=== PATIENT | male | born 1970 | race Caucasian/White ===

== ENCOUNTER 2022-01-15 19:52 | Emergency (ER) | payer OTHER ==
[~2022-01-15] VITALS: Ht 175.3 cm; Wt 117.9 kg
[2022-01-15] MEDS ORDERED: BENADRYL ALLERG25 MG PO (21:40)
[2022-01-15] MEDS ORDERED: ATIVAN0.5 MG PO (21:40)
[2022-01-15] MEDS ORDERED: EFFEXOR XR75 MG PO (21:41)
[2022-01-15] MEDS ORDERED: ZYPREXA5 MG PO (21:41)
[2022-01-15] MEDS ORDERED: ENBREL50 MG/1 M1 SUB-Q (21:41)
--- NOTE | 2022-01-16 19:24 | EKG ---
[facility] [address] [facility] [place], [place] [address] Signed Atrial fibrillation with rapid ventricular response Nonspecific ST and T wave abnormality Abnormal ECG No previous ECGs available Confirmed by MEENA SHARMA MD ([id number]) on 01/16/2022 7:24:34 PM Electronically Signed By: MEENA SHARMA MD 01/16/221923 PATIENT NAME: STEFANIE GEORGE Electrocardiogram DATE OF : 72 PHYSICIAN: MEENA SHARMA MD REPORT #: [id number] REPORT IS CONFIDENTIAL AND NOT TO BE RELEASED WITHOUT AUTHORIZATION
--- NOTE | 2022-01-16 19:25 | EKG ---
[facility] [address] [facility] [place] [address] Signed Poor data quality, interpretation may be adversely affected Normal sinus rhythm Nonspecific ST and T wave abnormality Abnormal ECG When compared with ECG of 15-JAN-2022 19:56, (Unconfirmed) Sinus rhythm has replaced Atrial fibrillation Vent. rate has decreased BY 111 BPM Confirmed by MEENA SHARMA MD ([id number]) on 01/16/2022 7:24:50 PM Electronically Signed By: MEENA SHARMA MD 01/16/22 1925 PATIENT NAME: STEFANIE EGORGE Electrocardiogram DATE OF : 72 PHYSICIAN: MEENA SHARMA MD REPORT #: [id number] REPORT IS CONFIDENTIAL AND NOT TO BE RELEASED WITHOUT AUTHORIZATION
== END 2022-01-16 01:49 | disposition home or self-care (01) ==
LOC: ED 19:52
DX: I48.0 Paroxysmal atrial fibrillation (principal); Z88.1 Allergy status to other antibiotic agents; Z88.2 Allergy status to sulfonamides; Z88.8 Allergy status to other drugs, medicaments and biological substances; Z91.018 Allergy to other foods; Z79.899 Other long term (current) drug therapy
CPT/HCPCS: 36415; 71045; 80053; 83735; 84484; 85025; 85379; 85610; 85730; 93005; 93010; 96374; 96375; 99285-25; J1170; J2405

== ENCOUNTER 2022-01-27 20:10 | Emergency (ER) | payer OTHER ==
[~2022-01-27] VITALS: Ht 175.3 cm; Wt 117.9 kg
[~2022-01-27 20:10] MED LIST: ATIVAN0.5 MG PO; BENADRYL ALLERG25 MG PO; EFFEXOR XR75 MG PO; ENBREL50 MG/1 M1 SUB-Q; ZYPREXA5 MG PO
--- OUTSIDE RECORDS SUMMARY | 2022-01-27 20:18 | XMS ---
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 [place] has no Care Guidelines for this patient. Rachid VISIT COUNT (12 MO.) [facility] T[facility] NOTE: Visits indicate total known visits. [place] [place] (12 MO.) [facility]/27/20[facility] [place] [facility] COMPLAINT: - CHEST PAIN 01/15/2022 19:53 [facility] [place] TYPE: Emergency COMPLAINT: - ALLERGIC REACTION DIAGNOSES: - Other shelter (current) drug therapy - Pain in throat - Allergy status to other drugs, medicaments and biological substances - Paroxysmal atrial fibrillation - Allergy to other foods - Allergy status to sulfonamides - Allergy status to other antibiotic agents INPATIENT VISIT TRACKING (12 MO.) No inpatient visits to display in this time frame [id number]
--- NOTE | 2022-01-28 06:53 | EKG ---
[facility] [address] [facility] [place] [address] Signed Normal sinus rhythm Normal ECG When compared with ECG of 15-JAN-2022 20:13, Nonspecific T wave abnormality, improved in Anterolateral leads Confirmed by WERO ROBIN MD ([id number]) on 01/28/2022 6:53:34 AM Electronically Signed By: WERO ROBIN MD 01/28/22 0653 PATIENT NAME: STEFANIE GEORGE Electrocardiogram DATE OF : 72 PHYSICIAN: WERO ROBIN MD REPORT #: [id number] REPORT IS CONFIDENTIAL AND NOT TO BE RELEASED WITHOUT AUTHORIZATION
== END 2022-01-27 23:32 | disposition home or self-care (01) ==
LOC: ED 20:10
DX: R07.89 Other chest pain (principal); Z91.018 Allergy to other foods; Z88.1 Allergy status to other antibiotic agents; Z88.2 Allergy status to sulfonamides; Z88.8 Allergy status to other drugs, medicaments and biological substances; Z79.899 Other long term (current) drug therapy
CPT/HCPCS: 36415; 71045; 80053; 83735; 84484; 85025; 85379; 85610; 93005; 93010; 96374; 99285-25; J1885

== ENCOUNTER 2022-01-30 18:46 | Emergency (ER) | payer OTHER ==
[~2022-01-30] VITALS: Ht 175.3 cm; Wt 117.9 kg
--- OUTSIDE RECORDS SUMMARY | 2022-01-30 18:55 | XMS ---
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 Lolis has no Care Guidelines for this patient. Rachid VISIT COUNT (12 MO.) 3 [facility] TOTAL 3 NOTE: Visits indicate total known visits. ED/[facility] VISIT TRACKING (12 MO.) 01/30/2022 18:47 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 - Allergy to other foods - Allergy status to other antibiotic agents - Allergy status to other drugs, medicaments and biological substances 01/15/2022 19:53 [facility] [place] TYPE: Emergency COMPLAINT: - ALLERGIC REACTION DIAGNOSES: - Allergy status to other drugs, medicaments and biological substances - Paroxysmal atrial fibrillation - Allergy to other foods - Allergy status to sulfonamides - Allergy status to other antibiotic agents - 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
[2022-01-30] MEDS ORDERED: NAPROXEN375 MG PO (19:30)
[2022-01-30] MEDS ORDERED: CARDIZEM120 MG PO (19:30)
[2022-01-30] MEDS ORDERED: TAMIFLU75 MG PO (21:42)
[2022-01-30] MEDS ORDERED: ELIQUIS5 MG PO (21:42)
[2022-01-30] MEDS ORDERED: METOPROLOL TART25 MG PO (21:42)
--- NOTE | 2022-02-01 19:02 | EKG ---
[facility] [address] [facility] [place], [place] [address] Signed Atrial fibrillation with rapid ventricular response ST \T\ T wave abnormality, consider lateral ischemia Abnormal ECG No previous ECGs available Confirmed by MEENA SHARMA MD ([id number]) on 02/01/2022 7:01:46 PM Electronically Signed By: MEENA SHARMA MD 02/01/221901 PATIENT NAME: DORISSTEFANIE Electrocardiogram DATE OF : 72 PHYSICIAN: MEENA SHARMA MD REPORT #: [id number] REPORT IS CONFIDENTIAL AND NOT TO BE RELEASED WITHOUT AUTHORIZATION
--- NOTE | 2022-02-01 19:02 | EKG ---
[facility] [address] [facility] [place], [place] [address] Signed Atrial fibrillation Left axis deviation ST \T\ T wave abnormality, consider anterolateral ischemia Abnormal ECG No previous ECGs available Confirmed by MEENA SHARMA MD ([id number]) on 02/01/2022 7:01:51 PM Electronically Signed By: MEENA SHARMA MD 02/01/221901 PATIENT NAME: DORISSTEFANIE Electrocardiogram DATE OF : 72 PHYSICIAN: MEENA SHARMA MD REPORT #: [id number] REPORT IS CONFIDENTIAL AND NOT TO BE RELEASED WITHOUT AUTHORIZATION
== END 2022-01-30 22:11 | disposition home or self-care (01) ==
LOC: ED 18:46
DX: I48.91 Unspecified atrial fibrillation (principal); J10.1 Influenza due to other identified influenza virus with other respiratory manifestations; Z20.822 Contact with and (suspected) exposure to COVID-19; Z88.1 Allergy status to other antibiotic agents; Z88.2 Allergy status to sulfonamides; Z88.8 Allergy status to other drugs, medicaments and biological substances; Z91.018 Allergy to other foods; Z79.899 Other long term (current) drug therapy
CPT/HCPCS: 36415; 71045; 80053; 83735; 84443; 84484; 85025; 87502; 93005; 93010; 96374; 96376; 99285-25; C9803; J7121; U0003

== ENCOUNTER 2022-04-18 16:34 | Emergency (ER) | payer OTHER ==
[~2022-04-18] VITALS: Ht 175.3 cm; Wt 117.9 kg
[~2022-04-18 16:34] MED LIST changes: +CARDIZEM120 MG PO; +ELIQUIS5 MG PO; +METOPROLOL TART25 MG PO; +NAPROXEN375 MG PO; +TAMIFLU75 MG PO
--- NOTE | 2022-04-19 13:31 | EKG ---
[facility] [address] [facility] [place] [address] Signed Normal sinus rhythm Normal ECG When compared with ECG of 30-JAN-2022 19:56, Sinus rhythm has replaced Atrial fibrillation Nonspecific T wave abnormality no longer evident in Inferior leads T wave inversion no longer evident in Anterolateral leads Confirmed by MEENA SHARMA MD ([id number]) on 04/19/2022 1:31:01 PM Electronically Signed By: MEENA SHARMA MD 04/19/22 1331 PATIENT NAME: CAMDENOfeliaSTEFANIE Electrocardiogram DATE OF : 72 PHYSICIAN: MEENA SHARMA MD REPORT #: [id number] REPORT IS CONFIDENTIAL AND NOT TO BE RELEASED WITHOUT AUTHORIZATION
== END 2022-04-18 19:05 | disposition home or self-care (01) ==
LOC: ED 16:34
DX: R55 Syncope and collapse (principal); S13.9XXA Sprain of joints and ligaments of unspecified parts of neck, initial encounter; X58.XXXA Exposure to other specified factors, initial encounter; I48.91 Unspecified atrial fibrillation; Z88.1 Allergy status to other antibiotic agents; Z88.8 Allergy status to other drugs, medicaments and biological substances; Z88.2 Allergy status to sulfonamides; Z79.899 Other long term (current) drug therapy
CPT/HCPCS: 36415; 70450; 71250; 72125; 80053; 84484; 85025; 85610; 93005; 93010; 96374; 99284-25; A9270; J1170; J7030

== ENCOUNTER 2022-05-10 23:13 | Emergency (ER) | payer OTHER ==
[~2022-05-10] VITALS: Ht 175.3 cm; Wt 111.1 kg
--- OUTSIDE RECORDS SUMMARY | 2022-05-10 23:16 | XMS ---
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 Lolis has no Care Guidelines for this patient. [facility] MO.) [facility] NOTE: Visits indicate total known visits. ED/[facility] VISIT TRACKING (12 MO.) [facility]10[facility]2022 23[facility] COMPLAINT: - CP 04/18/2022 16:34 [facility] [place] TYPE: Emergency COMPLAINT: - CHEST PAIN DIAGNOSES: - Other custodial (current) drug therapy - Syncope and collapse - Exposure to other specified factors, initial encounter - Allergy status to other antibiotic agents - Allergy status to sulfonamides - Unspecified atrial fibrillation - Sprain of joints and ligaments of unspecified parts of neck, initial encounter - Allergy status to other drugs, medicaments and biological substances 01/30/2022 18:47 [facility] [place] TYPE: Emergency COMPLAINT: - IRREGULAR HEART BEAT DIAGNOSES: - Other custodial (current) drug therapy - Palpitations - Allergy status to sulfonamides - Influenza due to other identified influenza virus with other respiratory manifestations - Allergy status to other antibiotic agents - Allergy status to other drugs, medicaments and biological substances - Unspecified atrial fibrillation - Allergy to other foods - Contact with and (suspected) exposure to COVID-19 01/27/2022 20:10 [facility] [place] TYPE: Emergency COMPLAINT: - CHEST PAIN DIAGNOSES: - Other custodial (current) drug therapy - Allergy to other foods - Allergy status to other antibiotic agents - Allergy status to other drugs, medicaments and biological substances - Allergy status to sulfonamides - Other chest pain 01/15/2022 19:53 [facility] [place] TYPE: Emergency COMPLAINT: - ALLERGIC REACTION DIAGNOSES: - Allergy status to sulfonamides - Allergy status to other antibiotic agents - 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
[2022-05-10] MEDS ORDERED: WARFARIN SODIUM2 MG PO (23:23)
[2022-05-10] MEDS ORDERED: JANTOVEN1 MG PO (23:23)
[2022-05-10] MEDS ORDERED: JANTOVEN5 MG PO (23:24)
--- NOTE | 2022-05-11 17:10 | EKG ---
[facility] [address] [facility] [place] [address] Signed Normal sinus rhythm Nonspecific T wave abnormality Abnormal ECG When compared with ECG of 18-APR-2022 16:36, Nonspecific T wave abnormality now evident in Inferior leads T wave inversion now evident in Lateral leads Confirmed by WERO ROBIN MD ([id number]) on 05/11/2022 5:10:42 PM Electronically Signed By: WERO ROBIN MD 05/11/22 1710 PATIENT NAME: DORISSTEFANIE Electrocardiogram DATE OF : 72 PHYSICIAN: WERO ROBIN MD REPORT #: [id number] REPORT IS CONFIDENTIAL AND NOT TO BE RELEASED WITHOUT AUTHORIZATION
--- NOTE | 2022-05-11 17:11 | EKG ---
[facility] [address] [facility] [place] [address] Signed Normal sinus rhythm Low voltage QRS Incomplete right bundle branch block T wave abnormality, consider lateral ischemia Abnormal ECG When compared with ECG of 10-MAY-2022 23:17, (Unconfirmed) No significant change was found Confirmed by WERO ROBIN MD ([id number]) on 05/11/2022 5:11:10 PM Electronically Signed By: WERO ROBIN MD 05/11/22 1711 PATIENT NAME: DORISSTEFANIE Electrocardiogram DATE OF : 72 PHYSICIAN: WERO ROBIN MD REPORT #: [id number] REPORT IS CONFIDENTIAL AND NOT TO BE RELEASED WITHOUT AUTHORIZATION
== END 2022-05-11 02:45 | disposition home or self-care (01) ==
LOC: ED 23:13
DX: R07.89 Other chest pain (principal); R07.2 Precordial pain; I48.91 Unspecified atrial fibrillation; Z91.018 Allergy to other foods; Z88.1 Allergy status to other antibiotic agents; Z88.8 Allergy status to other drugs, medicaments and biological substances; Z88.2 Allergy status to sulfonamides; Z79.899 Other long term (current) drug therapy; Z79.01 Long term (current) use of anticoagulants
CPT/HCPCS: 36415; 71045; 80053; 81003; 83690; 83735; 83880; 84484; 85025; 85379; 85610; 85730; 93005; 93010; 96374; 96375; 99285-25; J1885; J2270; J2405

== ENCOUNTER 2022-05-17 14:14 | Emergency (ER) | payer OTHER ==
[~2022-05-17] VITALS: Ht 175.3 cm; Wt 115.7 kg
[~2022-05-17 14:14] MED LIST changes: +JANTOVEN1 MG PO; +JANTOVEN5 MG PO; +WARFARIN SODIUM2 MG PO
--- OUTSIDE RECORDS SUMMARY | 2022-05-17 14:16 | XMS ---
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 Lolis has no Care Guidelines for this patient. [facility] MO.) [facility] NOTE: Visits indicate total known visits. 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 - Allergy status to other drugs, medicaments and biological substances - Precordial pain - Allergy status to sulfonamides - Other chest pain - Allergy to other foods 04/18/2022 16:34 [facility] [place] TYPE: Emergency COMPLAINT: - CHEST PAIN DIAGNOSES: - Exposure to other specified factors, initial encounter - Allergy status to other antibiotic agents - Allergy status to sulfonamides - Unspecified atrial fibrillation - Sprain of joints and ligaments of unspecified parts of neck, initial encounter - Allergy status to other drugs, medicaments and biological substances - 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 - Syncope and collapse 01/30/2022 18:47 [facility] [place] TYPE: Emergency COMPLAINT: - IRREGULAR HEART BEAT DIAGNOSES: - Allergy status to sulfonamides - Influenza due to other identified influenza virus with other respiratory manifestations - Allergy status to other antibiotic agents - Allergy status to other drugs, medicaments and biological substances - Unspecified atrial fibrillation - Allergy to other foods - Contact with and (suspected) exposure to COVID-19 - Other fpc (current) drug therapy - Palpitations 01/27/2022 20:10 [facility] [place] TYPE: Emergency COMPLAINT: - CHEST PAIN DIAGNOSES: - Allergy status to other antibiotic agents - Allergy status to other drugs, medicaments and biological substances - Allergy status to sulfonamides - Other chest pain - Other fpc (current) drug therapy - Allergy to other foods 01/15/2022 19:53 [facility] Gonzalez [place] TYPE: Emergency COMPLAINT: - ALLERGIC REACTION DIAGNOSES: - 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
[2022-05-17] MEDS ORDERED: DOXYCYCLINE HY100 MG PO (17:05)
--- NOTE | 2022-05-18 17:09 | EKG ---
[facility] [address] [facility] [place], [place] [address] Signed Normal sinus rhythm Normal ECG No previous ECGs available Confirmed by MEENA SHARMA MD ([id number]) on 05/18/2022 5:08:51 PM Electronically Signed By: MEENA SHARMA MD 05/18/22 1709 PATIENT NAME: JUAYN GEORGEN Josiah Electrocardiogram DATE OF : 72 PHYSICIAN: MEENA SHARMA MD REPORT #: [id number] REPORT IS CONFIDENTIAL AND NOT TO BE RELEASED WITHOUT AUTHORIZATION
== END 2022-05-17 17:43 | disposition home or self-care (01) ==
LOC: ED 14:14
DX: J18.9 Pneumonia, unspecified organism (principal); I48.91 Unspecified atrial fibrillation; Z88.8 Allergy status to other drugs, medicaments and biological substances; Z88.1 Allergy status to other antibiotic agents; Z88.2 Allergy status to sulfonamides; Z79.899 Other long term (current) drug therapy; Z79.01 Long term (current) use of anticoagulants
CPT/HCPCS: 36415; 71045; 80053; 84484; 85025; 85610; 93005; 93010; 94640; 96374; 99285-25; A9270; J0696

== ENCOUNTER 2022-08-23 18:41 | Emergency (ER) | payer OTHER ==
[~2022-08-23] VITALS: Ht 175.3 cm; Wt 117.7 kg
[~2022-08-23 18:41] MED LIST changes: +DOXYCYCLINE HY100 MG PO; +PREDNISONE20 MG PO
[2022-08-23] MEDS ORDERED: CYCLOBENZAPRINE10 MG PO (19:54)
[2022-08-23 20:53] VITALS: BP 125/85
--- NOTE | 2022-08-27 19:35 | EKG ---
[facility] [facility] [address] [facility] [place], [place] [address] Signed Normal sinus rhythm with sinus arrhythmia Normal ECG similar to previous Confirmed by JOAN NEGRETE MD ([id number]) on 08/27/2022 7:35:07 PM Electronically Signed By: JOAN NEGRETE 08/27/221934 PATIENT NAME: STEFANIE GEORGE Electrocardiogram DATE OF : 72 PHYSICIAN: JOAN NEGRETE REPORT #: [id number] REPORT IS CONFIDENTIAL AND NOT TO BE RELEASED WITHOUT AUTHORIZATION
== END 2022-08-23 20:53 | disposition home or self-care (01) ==
LOC: ED 18:41
DX: R07.89 Other chest pain (principal); Z91.018 Allergy to other foods; Z88.8 Allergy status to other drugs, medicaments and biological substances; Z79.01 Long term (current) use of anticoagulants; Z79.899 Other long term (current) drug therapy
CPT/HCPCS: 36415; 71045; 80053; 83735; 83880; 84484; 85025; 85379; 93005; 93010; 96374; 99285 25; J2270